=== PATIENT | female | born 1995 | race African-American/Black ===

== ENCOUNTER 2019-03-18 16:19 | Emergency (ER) | payer OTHER ==
[~2019-03-18] VITALS: Ht 172.7 cm; Wt 113.4 kg
[2019-03-18] MEDS ORDERED: [UNRECOGNIZED DRUG - REMARK] (16:53)
[2019-03-18 17:49] VITALS: BP 129/80
[2019-03-18] MEDS ORDERED: IBUPROFEN 600600 M1 PO (18:01)
[2019-03-18] MEDS ORDERED: TIZANIDINE HCL4 MG PO (18:01)
[2019-03-18] MEDS ORDERED: NORCO 5-325 TA1 EAC1 PO (18:25)
== END 2019-03-18 18:30 | disposition home or self-care (01) ==
LOC: ER 16:19
DX: S16.1XXA Strain of muscle, fascia and tendon at neck level, initial encounter (principal); S20.229A Contusion of unspecified back wall of thorax, initial encounter; S09.8XXA Other specified injuries of head, initial encounter; W20.8XXA Other cause of strike by thrown, projected or falling object, initial encounter; Y92.89 Other specified places as the place of occurrence of the external cause; Y93.89 Activity, other specified; Y99.8 Other external cause status